=== PATIENT | female | born 1950 | race Caucasian/White ===

== ENCOUNTER 2019-04-02 08:23 | Emergency (ER) | payer OTHER, SELFPAY ==
[2019-04-02 08:24] VITALS: BP 148/80; PULSE 90; RESP 18; TEMP 37; O2SAT 98; BMI 31.9
--- NOTE | 2019-04-02 08:43 | ED.DCSUM_ITS ---
History of Present Illness Chief Complaint: Wound Check Informant: Patient, Family Onset: Weeks Current Severity: Moderate Maximum Severity: Moderate Narrative: She presents for wound check. She suffered lacerations to both lower legs on March 23 after hitting her legs on a Rototiller. There is a 7 cm laceration over the left garay. There is a 4 cm and 7 cm laceration over the right garay. The longer laceration on the right leg has had drainage. Patient was seen at [facility] urgent care. After the initial injury she was treated with Keflex. She returned due to concern of infection. One stitch was removed and the wound was irrigated again. She was placed on amoxicillin and is still on that now. Patient presents for wound check and is concerned the wound was not cleaned properly. She is started to notice some increasing redness on her right garay. She had low-grade fever yesterday at 99 but afebrile today. Overall she feels well. Past Medical History - Allergies and Home Meds Allergies/Adverse Reactions: Allergies No Known Allergies Allergy (Verified 04/02/19 08:26) Primary Care Physician: Mendez Jose DO [Primary Care Provider] - Prior records reviewed: Yes Past Medical History: - - Reviewed Lives: With Family Smoking Status: Never smoker Review of Systems General: Reports: Fever, Subjective. Denies: Chills Eyes: Denies: Visual changes - bilaterally ENT: Denies: Bilateral ear pain Cardiovascular: Denies: Chest pain Respiratory: Denies: Dyspnea, Cough Gastrointestinal: Denies: Abdominal pain, Nausea, Vomiting, Diarrhea Genitourinary: Denies: Dysuria Musculoskeletal: Denies: Extremity Pain Skin: Reports: Wounds Neurological: Denies: Headache, Parasthesia Hematologic: Denies: Easy bruising, Easy bleeding Allergy: Denies: Uticaria Physical Exam Vital Signs/Narrative: Vital Signs Temp Pulse Resp BP Pulse Ox 04/02/19 08:24 98.6 F 90 18 148/80 H 98 Inital Vital Signs reviewed: Yes General: Well nourished, Well developed Head: Normocephalic ENT: Moist mucous membranes Neck: Supple Cardiovascular: Regular rate, Regular rhythm Respiratory: No distress, CTA bilaterally Abdomen: Soft, Nontender Extremities: - - Left garay reveals a 7 cm laceration with stitches intact. No sign of infection. Right garay reveals a 4 cm laceration with sutures intact and no sign of infection. There is a 7 cm laceration with sutures intact. There is mild bloody drainage. There is surrounding cellulitis. Area is minimally tender to palpation. There is no fluctuance. Skin: - - As above Neurological: Alert, Oriented x3 Psychological: Normal affect Diagnostic/Tx/Re-eval Laboratory Results 04/02/19 04/02/19 09:15 09:15 WBC 6.1 RBC 3.94 L Hgb 11.4 L Hct 35.8 L MCV 90.9 MCH 28.9 MCHC 31.8 L RDW Std Deviation 41.2 RDW Coeff of Nicole 12.4 Plt Count 346 MPV 8.3 Immature Gran % (Auto) 1.300 H Neut % (Auto) 65.8 Lymph % (Auto) 23.1 [place] % (Auto) 7.3 Eos % (Auto) 1.5 Baso % (Auto) 1.0 Absolute Neuts (auto) 4.0 Absolute Lymphs (auto) 1.40 Nucleated RBC % 0 Sodium 140 Potassium 4.0 Chloride 107 Carbon Dioxide 31.0 Anion Gap 2 L BUN 22 H Creatinine 0.58 Estim Creat Clear Calc 40.07 Est GFR (MDRD) Af Amer 132 Est GFR (MDRD) Non-Af 109 BUN/Creatinine Ratio 37.9 H Glucose 100 Calcium 9.2 - Medical Decision Making Right leg wound is cleansed. I palpated around the wound and there is no expression of pus or debris. There is no subcu emphysema. Area is minimally tender to palpation. Area of cellulitis is outlined and measures 9 x 15 cm. She received a dose of clindamycin in the emergency room. She will be treated with Bactrim and Keflex in combination to better cover MRSA. If her cellulitis extends or she develops fever she is to return for IV antibiotics. She also had blood cultures obtained. She was advised if these are positive she will be called and asked to come back in for IV medication as well. ED Disposition - Plan for ED Patient: Disposition: Home or Assisted Living Diagnosis: Infected laceration, Cellulitis Instructions: WOUND CHECK, Lac F/U (Infected), Cellulitis Prescriptions: Smz/Tmp Ds [Bactrim Ds] 1 tablet PO BID #20 tablet Cephalexin [Keflex] 500 mg PO Q6 #40 capsule Referrals: Mendez Jose DO [Primary Care Provider] - 1 Week
[2019-04-02] MEDS: 0.9% Normal Saline 1,000 ML 150 ML IV (09:21)
[2019-04-02 09:26] LABS: Basophil# 0.06 X10^3/uL; Eosinophil# 0.09 X10^3/uL; Eosinophils% 1.5 % (0-5); Hematocrit 35.8 % (37-47); Hemoglobin 11.4 g/dL (12.0-15.0); Lymphocyte % 23.1 % (19-41); Mean Corp Hgb Conc 31.8 g/dL (32-36); Mean Corpuscular Hgb 28.9 pg (27.0-32.0); Mean Corpuscular Volume 90.9 fL (81-99); Mean Platelet Vol. 8.3 fl (6.2-12.0); Monocyte# 0.44 X10^3/uL; Monocyte% 7.3 % (0-10); NRBC Flagged by Analyzer 0 % (0-5); Neutrophil # 3.99 X10^3/uL (2.7-7.7); Neutrophil % 65.8 % (47-70); Platelet Count 346 K/mm3 (150-450); RBC Distribution Width CV 12.4 % (11.6-14.6); RBC Distribution Width SD 41.2 fl (35.1-43.9); Red Blood Count 3.94 M/mm3 (4.2-5.4); White Blood Count 6.1 K/mm3 (4.4-11.0)
[2019-04-02 09:35] LABS: Anion Gap 2 (5-15); BUN 22 mg/dL (7-18); BUN/Creat Ratio 37.9 RATIO (10-20); Calcium,Total 9.2 mg/dL (8.5-10.1); Chloride 107 mmol/L (98-107); Creatinine, Serum 0.58 mg/dL (0.55-1.02); EST Glomerular Filtration Rate 109 mL/min (>60); Est Glom Filt Rate - Afr Amer 132 mL/min (>60); Estimated Creatinine Clearance 40.07 ml/min; Glucose 100 mg/dL (74-106); Sodium Level 140 mmol/L (136-145)
[2019-04-02 09:50] VITALS: BP 129/74; PULSE 80; RESP 16; TEMP 36.7; O2SAT 97
[2019-04-02 10:20] VITALS: BP 131/75; PULSE 62; RESP 15; TEMP 36.7; O2SAT 98
== END 2019-04-02 10:23 | disposition home or self-care (01) ==
PROVIDERS: Emergency Provider Emergency Medicine; Family Provider Physician Assistant; PCP Physician Assistant
DX: S81.811D Laceration without foreign body, right lower leg, subsequent encounter (principal); L03.115 Cellulitis of right lower limb; W45.8XXD Other foreign body or object entering through skin, subsequent encounter; Z79.2 Long term (current) use of antibiotics
CPT/HCPCS: 36415; 80048; 85025; 87040; 96365; 99283; J7030; A4216

== ENCOUNTER 2024-04-20 07:58 | Observation (INO) | payer OTHER, SELFPAY ==
[2024-04-20] VITALS (10 sets, daily range): BP systolic 151–202; BP diastolic 83–91; PULSE 60–69; RESP 15–67; TEMP 36.4–36.8; O2SAT 96–99; BMI 28.7; BMI 29.8
--- NOTE | 2024-04-20 08:01 | NURSING ---
NO OLD EKGS
--- NOTE | 2024-04-20 08:02 | NURSING ---
[id number] CALLED STROKE ALERT FROM TRIAGE
--- NOTE | 2024-04-20 08:03 | EKG12_ITS ---
Test Reason : STROKE Blood Pressure : / mmHG Vent. Rate : 064 BPM Atrial Rate : 064 BPM P-R Int : 156 ms QRS Dur : 098 ms QT Int : 450 ms P-R-T Axes : 033 -03 017 degrees QTc Int : 464 ms Sinus rhythm with Premature atrial complexes Otherwise normal ECG Confirmed by David Garza ([id number]), script editor KENRICK GIVENS ([id number]) on 04/21/2024 8:26:33 AM Referred By: Confirmed By:David Garza
--- NOTE | 2024-04-20 08:03 | CT_ITS ---
We are attempting to reach an attending provider to discuss findings. An addendum with communication details will be sent when the communication is complete. INDICATION: Neuro deficit, acute, stroke suspected EXAMINATION: CT BRAIN - CT Head Stroke Protocol W/O Contrast Injection TECHNIQUE: Multiple axial images were obtained of the head without intravenous contrast. The protocol utilizes one or more of the following dose reduction techniques: automated exposure control, adjustment of mA and/or kV according to patient size,and/or use of iterative reconstruction technique. IV Contrast dosage and agent: None. RADIATION DOSAGE (If Supplied By Facility): CTDIvol = ( ) mGy, DLP = ( ) mGycm COMPARISON: FINDINGS: BRAIN PARENCHYMA: No intra- or extra-axial hemorrhage. No evidence of acute infarct. No intracranial mass or mass effect. There is preservation of the berumen/white matter interface. Posterior fossa structures are unremarkable. CSF SPACES: Appropriate for age. No hydrocephalus. Basal cisterns are patent. CALVARIUM, SKULL BASE, PARANASAL SINUSES AND MASTOID AIR CELLS: Clear. No discrete lytic or blastic abnormalities. ORBITS: Both globes, extraocular muscles, optic nerves and retrobulbar fat appear unremarkable. ASPECTS Score for Acute Strokes: 10 CT/STROKE Brain/Head without Cont IMPRESSION: Negative Brain CT without contrast. Electronically Signed: Patrick Kirby MD at 8:23 EDT ,
--- NOTE | 2024-04-20 08:04 | EDS_ITS ---
HPI History of Present Illness Chief Complaint: Stroke Alert [facility] Medical History (Updated 04/03/19 @ 00:01 by Abby Santiago) Diastasis recti Ventral hernia Home Medications ?Medication ?Instructions ?Recorded ?Last Taken ?Type lisinopril 20 mg tablet 20 mg PO DAILY 04/20/24 Unknown History Allergy/AdvReac Type Severity Reaction Status Date / Time No Known Allergies Allergy Verified 04/02/19 08:26 Family History Mother Cancer lymphoma Sister Diabetes Surgical History (Updated 07/15/17 @ 12:56 by Justyna Bob) H/O colonoscopy H/O: hysterectomy H/O exploratory laparotomy H/O: section Social History (Updated 07/17/17 @ 14:[address] Safia Reynolds MD) Smoking Status: Never smoker alcohol intake: never EXAM Physical Exam Const Vital Signs: 04/20/24 08:00 04/20/24 08:03 04/20/24 08:09 Temperature 98.1 F Temperature Source Temporal Pulse Rate 67 67 Respiratory Rate 16 67 H Blood Pressure 202/90 H 179/90 H Blood Pressure Mean 127 119 Pulse Ox 99 99 98 Oxygen Delivery Method Room Air Room Air Room Air MDM MDM MDM Narrative Medical decision making narrative: HISTORY OF PRESENT ILLNESS: 74-year-old female presents concern for dizziness, balance difficulty, numbness. Last known well was 7 PM on 04/19/2024 approximately 13 hours prior to ED arrival. Per triage nurse patient had no facial droop. Noted left leg drift, left arm drift REVIEW OF SYSTEMS: Pertinent positives: Numbness, dizziness, Pertinent negatives: Chest pain, shortness breath, palpitations PHYSICAL EXAM: Nursing triage notes reviewed, Vital signs reviewed Constitutional: please see mdm HENT: MMM Eyes: Pupils equal round and reactive to light, Extraocular muscles intact Neck: No stridor, no JVD, full neck ROM Lungs: Clear to auscultation, No wheezing or rales. No increased work of breathing, no conversational dyspnea, no accessory muscle use, no nasal flaring. No respiratory distress noted Heart: Regular rate and rhythm, No murmurs, No rubs and No gallops, 2+ distal pulses (radial, femoral, posterior tibial) in all extremities Abdomen: Soft, there is no tenderness, rigidity, rebound or guarding, no obvious peritoneal signs, no palpable pulsatile abdominal masses, no auscultated abdominal bruit : No CVAT Extremities: No edema Neuro: Alert, oriented x 3, sensation intact in all 4 extremities, slight drift in left upper extremity with slight pronator drift, no obvious visual field deficits, no obvious nystagmus, no extremity ataxia. Gait initially not assessed secondary to acuity of condition. No obvious dysarthria or aphasia. NIH of 3 per triage notes (left-sided weakness in upper and lower extremity, numbness or slight sensory loss in left upper extremity). On my exam I had an NIH of 1 for left upper extremity drift. Skin: No rash or lesions noted MEDICAL DECISION MAKING: Chief Complaint: dizziness, numbness External records reviewed: Reviewed prior ED notes Factors affecting care: HTN Social determinants of health: [employer] History obtained from others: Consults: Stroke radiology, stroke neurology, internal medicine MDM Narrative: The patient was initially hypertensive with a blood pressure 202/90, otherwise afebrile and nontoxic-appearing. Given patient was noted to have left sided weakness per triage nurse report a stroke team was called in triage. Patient was evaluated immediately by myself. Initial neurologic exam for me was NIH of 1 for slight left upper extremity drift. Stroke protocol orders were placed immediately. I considered the following differential diagnosis: ICH, CVA, posterior circulation CVA, carotid artery dissection, dehydration, electro disturbance, arrhythmia, myocardial ischemia, coagulopathy Given patient's symptoms started within the first 24 hours a code stroke was called. The patient was NOT a candidate for TNK or thrombectomy given she was more than 4 and half hours since last known well and she does not have an NIH stroke scale high enough nor imaging findings (large vessel occlusion on CTA) to qualify for thrombectomy ALL IMAGES (IF OBTAINED) HAVE BEEN PERSONALLY REVIEWED AND INTERPRETED BY MYSELF. CT scan of the brain was negative for bleed or mass CT head and neck shows no evidence of large vessel occlusion EKG with NSR, normal axis, normal intervals, no afib, no STEMI BMP without evidence of significant electrolyte abnormalities (noted hypokalemia), no anion gap, no acute kidney injury. CBC without leukocytosis, severe anemia, no thrombocytopenia. High-sensitivity troponin is negative, no evidence of myocardial ischemia I have personally reviewed the patient's chest x-ray. Chest x-ray is unremarkable for pulmonary edema, pneumothorax, pneumonia or focal cardiopulmonary abnormality. On reevaluation the patient's blood pressure improved 182 /88. Given concern for acute CVA will admit for confirmatory MRI. Discussed with hospitalist, stroke radiologist and stroke neurologist. Who are all in agreement. The patient and/or family, caregivers express understanding. The patient and/or family, caregivers agrees with the plan. Shared decision making: I will have a discussion with the patient and or visitors regarding risk/benefits of further testing or admission. They will be made aware of of the risk/benefits inherent in this decision they will be given the opportunity to voice understanding. Total critical care time today provided was at least 0 minutes. This excludes separately billable procedures. Critical care time (if documented) is secondary to the patient having high probability of clinically significant/life threatening deterioration in the patient's condition which required my urgent intervention. Impression: 1. Left-sided weakness 2. History of hypertension 3. Acute CVA Dispo: Admit This note was generated with [email or web address] dictation software. It may contain incorrect words, spelling, and punctuation that were not noted in review of the chart prior to signing. Lab Data Labs: Laboratory Results - last 24 hr 04/20/24 08:10 WBC 6.7 RBC 4.31 Hgb 12.5 Hct 38.8 MCV 90.0 MCH 29.0 MCHC 32.2 RDW Std Deviation 43.2 RDW Coeff of Nicole 13.1 Plt Count 233 MPV 8.9 Immature Gran % (Auto) 0.400 Neut % (Auto) 65.5 Lymph % (Auto) 24.2 [place] % (Auto) 8.0 Eos % (Auto) 1.3 Baso % (Auto) 0.6 Absolute Neuts (auto) 4.4 Absolute Lymphs (auto) 1.63 Nucleated RBC % 0 Radiography Diagnostic Testing: Clinical Impression(s) from Imaging Studies Brain CT 04/20/24 08:03 IMPRESSION: Negative Brain CT without contrast. Electronically Signed: Patrick Kirby MD at 8:23 EDT , Discharge Plan Triage Chief Complaint: Stroke Alert ED Provider: Cali,Manolo Dx/Rx/DC Orders Prescriptions: No Action lisinopril 20 mg tablet 20 mg PO DAILY Primary Care Provider: Mendez Jose Referrals: Mendez Jose, PARaúlC [Primary Care Provider] - Print Language: Tamazight
--- NOTE | 2024-04-20 08:04 | CT_ITS ---
We are attempting to reach an attending provider to discuss findings. An addendum with communication details will be sent when the communication is complete. STUDY: CTA HEAD AND NECK WITH CONTRAST REASON FOR EXAM: Female, 74 years old. Neuro deficit, acute, stroke suspected RADIATION DOSAGE (If Supplied By Facility): CTDIvol = ( 20.01 ) mGy, DLP = ( 699.43 ) mGycm TECHNIQUE: CT angiography was performed with a multi-detector CT scanner. Data acquisition was obtained from the skull base through the vertex following intravenous administration of IV 100mL [id number]-370. MIP images were reconstructed from the axial data set. Post-processing of the angiographic images was performed, with multiplanar reformation and 3D reconstruction. Individualized dose optimization techniques were used for this CT. COMPARISON: No relevant priors. FINDINGS: Normal bilateral petrous carotid arteries. Normal right cavernous carotid artery with a normal supraclinoid bifurcation. Normal left cavernous carotid artery with a normal supraclinoid bifurcation. Normal right A1 segments of the anterior cerebral artery. Normal left A1 segments of the anterior cerebral artery. Normal intact anterior communicating artery (ACOM). Normal bilateral A2 segments of the anterior cerebral arteries. Normal right M1 and M2 segments of the middle cerebral arteries, with a normal M1 bifurcation. Normal left M1 and M2 segments of the middle cerebral arteries, with a normal M1 bifurcation. Normal right posterior communicating artery (PCOM). Normal left posterior communicating artery (PCOM). Normal bilateral vertebral arteries. Normal basilar artery with a normal basilar bifurcation. The visualized bilateral superior cerebellar (SCA) arteries are normal. Normal bilateral P1, P2 and visualized P3 segments of the posterior cerebral arteries. There is no demonstrated aneurysm of the solomon of [place]. There is no demonstrated abnormality of the visualized brain. AORTIC ARCH: Normal visualized aortic arch. Normal origins of the brachiocephalic, left common carotid, and left subclavian arteries. RIGHT CAROTID ARTERIES: Normal right common carotid artery (CCA). Normal right common carotid bulb. Normal origin of the right internal carotid (ICA) artery without a hemodynamically significant stenosis. Normal visualized cervical portion of the right internal carotid artery. Normal origin of the right external carotid artery (ECA). LEFT CAROTID ARTERIES: Normal left common carotid artery (CCA). Normal left common carotid bulb. Normal origin of the left internal carotid (ICA) artery without a hemodynamically significant stenosis. Normal visualized cervical portion of the left internal carotid artery. Normal origin of the left external carotid artery (ECA). VERTEBRAL ARTERIES: Normal bilateral vertebral arteries. CT/STROKE CTA Head AND Neck W/Con IMPRESSION: Normal CTA Head and neck with contrast. Electronically Signed: Patrick Kirby MD at 8:45 EDT ,
[2024-04-20 08:21] LABS: Absolute Lymphocyte Count 1.63 X10^3/uL (0.83-4.51); Absolute Neutrophil Count 4.4 X10^3/uL (2.0-7.7); Basophil# 0.04 X10^3/uL; Basophil% 0.6 % (0-1); Eosinophil# 0.09 X10^3/uL; Eosinophils% 1.3 % (0-5); Hematocrit 38.8 % (37-47); Hemoglobin 12.5 g/dL (12.0-15.0); Lymphocyte # 1.63 X10^3/ul (0.83-4.51); Lymphocyte % 24.2 % (19-41); Mean Corp Hgb Conc 32.2 g/dL (32-36); Mean Platelet Vol. 8.9 fl (6.2-12.0); Monocyte# 0.54 X10^3/uL; NRBC Flagged by Analyzer 0 % (0-5); Neutrophil # 4.41 X10^3/uL (2.7-7.7); Neutrophil % 65.5 % (47-70); Platelet Count 233 K/mm3 (150-450); RBC Distribution Width CV 13.1 % (11.6-14.6); RBC Distribution Width SD 43.2 fl (35.1-43.9); Red Blood Count 4.31 M/mm3 (4.2-5.4); White Blood Count 6.7 K/mm3 (4.4-11.0)
[2024-04-20 08:39] LABS: Anion Gap 8 (5-15); BUN 12 mg/dL (7-18); BUN/Creat Ratio 21.3 RATIO (10-20); Calcium,Total 9.6 mg/dL (8.5-10.1); Chloride 107 mmol/L (98-107); Creatinine, Serum 0.56 mg/dL (0.55-1.02); EST Glomerular Filtration Rate 112 mL/min (>60); Est Glom Filt Rate - Afr Amer 135 mL/min (>60); Estimated Creatinine Clearance 54.81 ml/min; Glucose 104 mg/dL (74-106); Potassium 3.3 mmol/L (3.5-5.1); Sodium Level 141 mmol/L (136-145); Troponin-I HS 12 pg/mL (3.0-54.0)
[2024-04-20 08:45] LABS: Bedside Glucose 91 mg/dL (74-106)
[2024-04-20 09:12] LABS: International Normalized Ratio 1.1; Prothrombin Time (Protime)PT. 13.9 SECONDS (11.7-14.9)
[2024-04-20 09:14] LABS: Partial Thromboplast Time 32.6 Seconds (24.1-36.2)
--- NOTE | 2024-04-20 09:15 | RAD_ITS ---
STUDY: X-RAY CHEST REASON FOR EXAM: Female, 74 years old. Neuro deficit, acute, stroke suspected TECHNIQUE: Single AP portable view of the chest. COMPARISON: None. FINDINGS: The lungs are clear and expanded. There is no demonstrated pleural abnormality. Normal size heart. Normal mediastinum and salazar. Normal visualized pulmonary arteries. Normal visualized aortic arch and descending thoracic aorta. Normal visualized thoracic spine. Normal visualized ribs, clavicles, and shoulders. There is no demonstrated abnormality of the visualized soft tissue structures of the upper abdomen. RAD/Chest 1 View IMPRESSION: Normal x-ray examination of the chest. Electronically Signed: Patrick Kirby MD at 10:09 EDT ,
--- NOTE | 2024-04-20 09:43 | MRI_ITS ---
EXAM: MR HEAD WITHOUT INTRAVENOUS CONTRAST CLINICAL INDICATION: CVA TECHNIQUE: Multiplanar and multisequence MR images of the brain were obtained without intravenous contrast. COMPARISON: CT head without contrast and CTA head and neck with contrast 04/20/2024. FINDINGS: BRAIN AND EXTRA-AXIAL SPACES: No diffusion restriction to suspect acute or subacute ischemic infarct. Multiple T2 FLAIR hyperintensity foci in the white matter of both cerebral hemispheres are chronic white matter ischemic changes. No remote cortical-based ischemic infarct. No midline shift and no mass effects. Normal ventricles and cisterns. No communicating or noncommunicating hydrocephalus. No intra- or extra-axial hemorrhage. Posterior fossa structures are unremarkable. SELLA: Unremarkable. Normal sella turcica, pituitary gland, infundibular stalk, optic chiasm and hypothalamus. AUDITORY SYSTEM: Unremarkable. The internal auditory canals are patent. BONES/JOINTS: Unremarkable. No discrete lytic or blastic abnormalities. SINUSES: Unremarkable as visualized. Clear. MASTOID AIR CELLS: Unremarkable as visualized. Clear. ORBITS: Unremarkable as visualized. Both globes, extraocular muscles, optic nerves and retrobulbar fat appear unremarkable. VASCULATURE: Unremarkable as visualized. Normal flow voids in the major intracranial circulation. MRI/Brain without Contrast IMPRESSION: 1. No MRI evidence of acute or subacute ischemic infarct or acute intracranial abnormality. 2. Chronic white matter ischemic changes in both cerebral hemispheres. Electronically Signed: Clovis Thomas MD at 8:26 EDT ,
--- NOTE | 2024-04-20 09:43 | ECHOD_ITS ---
Reason For Study: TIA/STROKE Procedure This was a 2D Doppler, Color Flow transthoracic echocardiogram. Exam performed portable in patient room. Left Ventricle Normal LV size. Sigmoid septum. Left ventricular systolic function is normal. The left ventricular ejection fraction is 65 %. Stage 1 diastolic dysfunction. No regional wall motion abnormalities noted. Right Ventricle Normal RV size. Normal systolic function. Atria Normal left atrium. Normal right atrium. Cannot rule out tiny PFO. Mitral Valve Normal mitral valve. Tricuspid Valve Normal tricuspid valve. Mild (1+) tricuspid valve insufficiency. Pulmonary artery systolic pressure is 24 mmHg. Aortic Valve Trisinus/trileaflet aortic valve. Mild focal aortic valve calcification. Pulmonic Valve Normal pulmonic valve. Great Vessels Normal aortic root. The pulmonary artery is normal size. Inferior vena cava collapse with respiration. Pericardium/Pleural No pericardial effusion. Medication Performed a rapid injection of agitated mix of 9 cc saline and 1cc air to assess for atrial septal defect. MMode/2D Measurements & Calculations LVIDd: 3.9 cm IVSd: 1.5 cm LVOT diam: 2.1 cm LVIDs: 2.6 cm LVPWd: 1.1 cm RVDd: 4.0 cm FS: 33.7 % LVOT area: 3.5 cm2 asc Aorta Diam: 3.5 cm LAV(MOD-bp): 52.2 ml LVAd ap4: 27.5 cm2 LAV(MOD-bp) Indexed: 30.5 ml/m2 LVLd ap4: 8.4 cm LAV(MOD-sp2): 59.4 ml EDV(MOD-sp4): 73.0 ml LAV(MOD-sp4): 36.3 ml EDV(sp4-el): 76.9 ml LVAs ap4: 14.0 cm2 LVLs ap4: 6.9 cm ESV(MOD-sp4): 24.6 ml ESV(sp4-el): 24.0 ml EF(MOD-sp4): 66.3 % EF(sp4-el): 68.7 % LVAd ap2: 24.4 cm2 SV(MOD-sp4): 48.3 ml SV(MOD-sp2): 37.8 ml LVLd ap2: 8.4 cm EDV(MOD-sp2): 58.0 ml EDV(sp2-el): 60.2 ml LVAs ap2: 12.6 cm2 LVLs ap2: 7.1 cm ESV(MOD-sp2): 20.2 ml ESV(sp2-el): 18.8 ml EF(MOD-sp2): 65.2 % SV(sp4-el): 52.8 ml Ao sinus diam: 3.[address] Junction: 2.7 cm LA dimension(2D): 4.1 cm LA A4 area: 14.8 cm2 RA A4 area: 12.2 cm2 TAPSE: 1.8 cm Time Measurements MV dec time: 0.25 sec Doppler Measurements & Calculations MV E max jeronimo: 76.5 cm/sec Lat Peak E' Jeronimo: 8.5 cm/sec Med Peak E' Jeronimo: 6.7 cm/sec MV A max jeronimo: 88.0 cm/sec E/E' lat: 9.0 E/E' med: 11.5 MV E/A: 0.87 MV dec slope: 300.3 cm/sec2 Ao V2 max: 178.9 cm/sec LV V1 max: 97.3 cm/sec Ao max P.8 mmHg LV V1 max P.8 mmHg Ao V2 mean: 120.6 cm/sec LV V1 mean P.3 mmHg Ao mean P.5 mmHg LV V1 mean: 73.3 cm/sec Ao V2 VTI: 34.8 cm LV V1 VTI: 22.2 cm AV (velocity ratio): 0.64 ANDREI(I,D): 2.2 cm2 ANDREI(V,D): 1.9 cm2 SV(LVOT): 77.1 ml PA V2 max: 80.8 cm/sec TR max jeronimo: 228.1 cm/sec PA max PG (full): 1.5 mmHg TR max P.8 mmHg ECHO/Echo Complete Interpretation Summary Normal LV size. Left ventricular systolic function is normal. The left ventricular ejection fraction is 65 %. Stage 1 diastolic dysfunction. Pulmonary artery systolic pressure is 24 mmHg. Cannot rule out tiny PFO. Ordering Physician: Misael Alcazar Performed By: Erna Díaz RDCS
[2024-04-20] MEDS: Heparin Injection (Vial) 5,000 UNIT/ML VIAL 5000 UNIT SC ×2 (11:20→21:23)
--- NOTE | 2024-04-20 16:29 | HP.PCM.HOS_ITS ---
HPI - General General Date of Admission: 04/20/24 Date of Service: 04/20/24 Chief Complaint: Left-sided weakness, left hand numbness HPI Narrative FLYNN YAN, is a 74 F who presents to the emergency room at [facility] with complaints of left-sided weakness since around 7:00 last night, patient also complains of a numbness over her left hand. Patient denies any speech or visual impairment. Stroke team was called on her admission to the emergency room today, she underwent a CT of her head which did not show an acute process, she also had a CTA of her head and neck which showed no evidence of large vessel occlusion. Patient takes only lisinopril at home, she does not take an 81 mg aspirin per day. Patient's NIH stroke score according to the emergency room physician was 1. Patient's blood pressure was elevated on admission at 202/90. Patient's CHEM profile was remarkable for potassium 3.3, CBC was unremarkable. Patient will be placed in observation status on PCU, and MRI of the brain without contrast will be obtained and an echocardiogram will be obtained. Patient will have a lipid profile drawn and be placed on a statin and an 81 mg aspirin daily. She will be seen in consultation by teleneurology. [facility] Medical History (Updated 04/20/24 @ 17:[address] Misael Alcazar DO) Diastasis recti Ventral hernia Home Medications ?Medication ?Instructions ?Recorded ?Last Taken ?Type lisinopril 20 mg tablet 20 mg PO DAILY 04/20/24 04/19/24 History Allergy/AdvReac Type Severity Reaction Status Date / Time No Known Allergies Allergy Verified 04/02/19 08:26 Family History Mother Cancer lymphoma Sister Diabetes Surgical History H/O colonoscopy H/O: hysterectomy H/O exploratory laparotomy H/O: section Social History (Updated 07/17/17 @ 14:[address] Safia Reynolds MD) Smoking Status: Never smoker alcohol intake: never ROS Constitutional Constitutional: Reports weakness; Denies anorexia, change in weight, chills, fatigue, fever(s) or night sweats Eyes Eyes: Denies blurry vision, change in vision, discharge from eye(s) or eye pain Cardiovascular Cardiovascular: Denies chest pain, claudication, dyspnea on exertion, edema, lightheadedness or palpitations Respiratory/Chest Respiratory/Chest: Denies cough, hemoptysis, shortness of breath at rest or shortness of breath with exertion Gastrointestinal Gastrointestinal: Denies abdominal pain, constipation, diarrhea, hematemesis, hematochezia, melena, nausea or vomiting Genitourinary Genitourinary: Denies dysuria, hematuria, urinary frequency, urinary hesitancy, urinary incontinence or urinary urgency Musculoskeletal Musculoskeletal: Denies back pain, joint pain, joint stiffness, joint swelling, myalgias or neck pain Neurologic Neurologic: Reports focal weakness and numbness; Denies abnormal gait, abnormal speech, dizziness, headache(s), loss of vision, other visual disturbances, paresthesias, syncope or tingling Psychiatric Psychiatric: Denies anxiety, cognitive impairment, depression, irritability, mood swings or suicidal ideation Endocrine Endocrinology: Denies change in body appearance, cold intolerance, excessive sweating, heat intolerance, polydipsia or polyuria Hematologic/Lymphatic Hematologic/Lymphatic: Denies none, anemia, easy bleeding, easy bruising or lymphadenopathy Allergic/Immunologic Allergic/Immunologic: Denies rhinitis, urticaria, eczemia or asthma Vital Signs Vital Signs Vital Signs: 04/20/24 08:00 04/20/24 08:03 04/20/24 08:09 Temperature 98.1 F Temperature Source Temporal Pulse Rate 67 67 Respiratory Rate 16 67 H Blood Pressure 202/90 H 179/90 H Blood Pressure Mean 127 119 Blood Pressure Source Blood Pressure Position Blood Pressure Location Pulse Ox 99 99 98 Oxygen Delivery Method Room Air Room Air Room Air 04/20/24 08:33 04/20/24 09:44 04/20/24 10:35 Temperature 98.2 F 97.6 F L Temperature Source Temporal Pulse Rate 62 63 60 Respiratory Rate 18 15 16 Blood Pressure 182/88 H 176/86 H 165/91 H Blood Pressure Mean 119 116 115 Blood Pressure Source Monitor Blood Pressure Position Semi-Fowlers Blood Pressure Location Right Arm Pulse Ox 98 98 98 Oxygen Delivery Method Room Air Room Air 04/20/24 10:35 04/20/24 14:09 04/20/24 15:24 Temperature 97.5 F L Temperature Source Oral Pulse Rate 64 Respiratory Rate 18 Blood Pressure 151/83 H Blood Pressure Mean 105 Blood Pressure Source Monitor Blood Pressure Position Semi-Fowlers Blood Pressure Location Right Arm Pulse Ox 98 96 Oxygen Delivery Method Room Air Room Air Room Air Weight Weight: 71.7 kg Body Mass Index (BMI) 29.8 Physical Exam Const alert, oriented x3, no apparent distress and healthy appearing General Appearance: cooperative, well kempt and well developed Orientation / Consciousness: awake, oriented to person, oriented to place and oriented to time HEENT normocephalic, head/scalp atraumatic, hearing grossly normal bilaterally and moist oral mucous membranes Eyes PERRL, EOMs intact bilaterally and conjunctivae normal Neck supple, no JVD, thyroid normal and no carotid bruits General: trachea midline Resp normal respiratory effort, no retractions, no use of accessory muscles and clear to auscultation bilaterally Auscultation: Negative for rales, rhonchi or wheezes Cardio regular rate, regular rhythm, S1 normal heart sound, S2 normal heart sound, no murmurs, no rub and no gallops GI normal to inspection, nondistended, normoactive bowel sounds, soft to palpation, non-tender and non-distended Extremity no clubbing, cyanosis or edema Skin no rashes or lesions noted General Skin Exam: no breakdown Neuro oriented x3, CN's II-XII intact bilaterally, moves all extremities, no focal motor deficits and no sensory deficits noted Sensorium / Orientation: awake and alert Speech: speech normal Psych affect normal Results Lab / Micro Data 04/20/24 08:10 04/20/24 08:10 Labs: Laboratory Results - last 24 hr 04/20/24 07:58: POC Glucose 91 04/20/24 08:10: WBC 6.7, RBC 4.31, Hgb 12.5, Hct 38.8, MCV 90.0, MCH 29.0, MCHC 32.2, RDW Std Deviation 43.2, RDW Coeff of Nicole 13.1, Plt Count 233, MPV 8.9, Immature Gran % (Auto) 0.400, Neut % (Auto) 65.5, Lymph % (Auto) 24.2, [place] % (Auto) 8.0, Eos % (Auto) 1.3, Baso % (Auto) 0.6, Absolute Neuts (auto) 4.4, Absolute Lymphs (auto) 1.63, Nucleated RBC % 0, PT 13.9, INR 1.1, APTT 32.6, Sodium 141, Potassium 3.3 L, Chloride 107, Carbon Dioxide 27.0, Anion Gap 8, BUN 12, Creatinine 0.56, Estim Creat Clear Calc 54.81, Est GFR (MDRD) Af Amer 135, Est GFR (MDRD) Non-Af 112, BUN/Creatinine Ratio 21.3 H, Glucose 104, Calcium 9.6, Troponin I High Sens 12 Imaging Radiology Impression Brain CT 04/20/24 08:03 IMPRESSION: Negative Brain CT without contrast. Electronically Signed: Patrick Kirby MD at 8:23 EDT Reading Location ID and State: [id number] / [employer] Tel , Service support , ADDENDUM: 04/20/24 0839 IMPRESSION: Negative Brain CT without contrast. N.B. : The above Results were Read Back by Patrick Kirby MD to Manolo Leiva DO, and understanding confirmed on 04/20/2024 08:32:54 (ET). Electronically Signed: Patrick Kirby MD at 8:23 EDT Reading Location ID and State: [id number] / [employer] Tel , Service support , Head/Neck CTA 04/20/24 08:04 IMPRESSION: Normal CTA Head and neck with contrast. Electronically Signed: Patrick Kirby MD at 8:45 EDT Reading Location ID and State: [id number] / [employer] Tel , Service support , ADDENDUM: 04/20/24 1004 IMPRESSION: Normal CTA Head and neck with contrast. N.B. : The above Results were Read Back by Patrick Kirby MD to Manolo Leiva DO, and understanding confirmed on 04/20/2024 09:57:10 (ET). Electronically Signed: Patrick Kirby MD at 8:45 EDT Reading Location ID and State: [id number] / [employer] Tel , Service support , Chest X-Ray 04/20/24 09:15 IMPRESSION: Normal x-ray examination of the chest. Electronically Signed: Patrick Kirby MD at 10:09 EDT , Assessment & Plan Assessment/Plan (1) Left-sided weakness: PLAN: Plan 1. Left-sided weakness-etiology unclear, again patient will be placed in observation status on PCU, MRI of the brain will be obtained and an echocardiogram of the heart will be obtained, patient will be placed on a statin and 81 mg aspirin daily, a lipid profile will be obtained, she will be seen in consultation by teleneurology, she will be seen by PT and OT. #2 essential hypertension-patient will remain on lisinopril at this time #3 hypokalemia-patient will be given potassium supplementation, BMP will be repeated tomorrow Total clinical time spent by myself addressing the patient's medical issues, reviewing all of her data, and collaborating with patient's care team: 55 minutes Charges/Coding Visit Charges Inpatient E&M: 46897 Init Hosp L2
[2024-04-20] MEDS: Potassium Chloride Oral Tablet 20 MEQ 40 MEQ PO (17:45)
[2024-04-21 01:45] VITALS: BP 169/107; PULSE 86; RESP 17; TEMP 37; O2SAT 95
[2024-04-21 05:45] VITALS: BP 172/95; PULSE 65; RESP 17; TEMP 36.7; O2SAT 94
[2024-04-21 06:56] LABS: Anion Gap 3 (5-15); BUN 13 mg/dL (7-18); BUN/Creat Ratio 20.5 RATIO (10-20); Calcium,Total 9.4 mg/dL (8.5-10.1); Chloride 110 mmol/L (98-107); Cholesterol 271 mg/dL (200); Creatinine, Serum 0.64 mg/dL (0.55-1.02); EST Glomerular Filtration Rate 97 mL/min (>60); Est Glom Filt Rate - Afr Amer 118 mL/min (>60); Estimated Creatinine Clearance 55.87 ml/min; Glucose 99 mg/dL (74-106); High Density Lipoprotein 70 mg/dL; Potassium 4.4 mmol/L (3.5-5.1); Sodium Level 140 mmol/L (136-145); Triglycerides 82 mg/dL; Very Low Density Lipoprotein 16 mg/dL (5-40)
[2024-04-21 08:03] VITALS: BMI 29.8
[2024-04-21 08:11] VITALS: O2SAT 94
[2024-04-21 09:20] VITALS: BP 160/97; PULSE 73; RESP 16; TEMP 36.3; O2SAT 97
--- NOTE | 2024-04-21 09:51 | NURSING ---
Spoke at length about CVA/TIA, risk factors, and lifestyle/diet/medication modifications and regimen for prevention. The pt and her are Johny and more inclined to pursue holistic measures to aide in stroke prevention. Pt and made aware of lipid panel results and encouraged a statin and diet modifications, to which they seem interested in learning more about diet strategies, but are not agreeable to take any medications at this time as prescribed. This RN informed pt that american history professor would see her while she is here in the hospital. I encouraged them to take prescribed medications as they are the standard of care for stroke prevention but ultimately the decision is theirs and I can just offer the facts to make an informed decision. They were thankful for explanations at this time.
--- NOTE | 2024-04-21 10:37 | DCINST_ITS ---
Discharge Instructions Diet Discharge Diet: No restrictions Activity Discharge Activity: Return to Normal Activity Weight Bearing Status: Full weight bearing Follow Up Care Test Results: Test results from this visit will be discussed in further detail at your follow- up appointment, if applicable. Discharge Plan Admission Admit Date/Time: 04/20/24 09:17 Primary Reason for Your Visit: left sided weakness Attending Provider: Misael Alcazar Primary Care Provider: Mendez Jose Consulting Providers: Devonte Urrutia; Debbie Cardona; Daphne Carreno; Jeannie Balderas; Caitlyn Haley; Chidi Lau; Sydney De La Cruz; Watson Lynch; Dominic Roberto; Constantin Garcia; Taryn Mahajan; Jozef Hawthorne; Milagros Short; Maylin Cuellar; Sharona Morgan; Stalin Gao; Darrick Hodges; Nii De Guzman; Cheryl Jauregui; Saeid Park Discharge Orders/Prescriptions Prescriptions: Continued lisinopril 20 mg tablet 20 mg PO DAILY Referrals / Follow Up: Mendez Jose PA-C [Primary Care Provider] - Within 2 Weeks Disposition Disposition (needs filled in before D/C Order can be placed): Home, Self Care
--- NOTE | 2024-04-21 10:48 | CASEMGMT ---
Social Work PHQ-9 completed, pt scored a 1 for changes in appetite. Otherwise, no indication of depression showing in PHQ-9. No further social service needs anticipated at this time. [facility]anda
--- NOTE | 2024-04-21 10:50 | DS.PCM_ITS ---
Providers Date of Admission: 04/20/24 Date of Discharge: 04/21/24 Primary Care Physician: Mendez Jose PA-C Consultations 04/20/24 10:19 Consult: Tele-Neurology Routine Consulting Provider: [facility] Reason for Consult: Acute Ischemic Stroke/TIA EMERGENT Consult: No MD Notified: Yes Date Notified: 04/20/24 Time Notified: 11:06 Method of Notification: Answering Service Nursing Unit Staff Notify [facility] of Tele-Neurology Consult: Yes Reason For Visit: LEFT SIDED WEAKNESS Diagnosis Discharge Diagnosis (1) Left-sided weakness: Status: Acute Code(s): R53.1 - Weakness Plan 1. Left-sided weakness-etiology unclear, #2 essential hypertension-patient will remain on lisinopril at this time #3 hypokalemia-patient will be given potassium supplementation, BMP will be repeated tomorrow Total clinical time spent by myself addressing the patient's medical issues, reviewing all of her data, and collaborating with patient's care team: 55 minutes Medications at Discharge Home Medications lisinopril 20 mg tablet 20 mg PO DAILY blood pressure 04/20/24 Hospital Course Operations None Procedures 2-D Echocardiogram Summary of Care Provided Minutes Spent on Discharge: 32 Hospital Course: This 74-year-old white female was seen in the emergency room at [facility] with complaints of left-sided weakness that started the evening before she was seen in the emergency room. A stroke team was called, workup included a CTA of the head and neck and a CT of the brain, there was no acute process noted but the patient was not deemed to be a candidate for tenecteplase due to her timeframe of her symptoms and NIH score of 1. Patient's potassium was slightly low and she was given potassium supplementation. Patient was placed in observation status on PCU, NIH scores were monitored, patient had an echocardiogram which was unremarkable, and the patient was placed on aspirin and a statin which she refused to take during her hospitalization. Patient's MRI of the brain showed no evidence of stroke, this examiner did not feel her symptoms indicated a TIA but I recommended the patient take a baby aspirin daily which she refused to take as an outpatient. Instead the patient wanted to take an [id number] medication called nattokinase, she also refused to take a statin as an outpatient. In addition, patient refused her blood pressure medication while hospitalized-patient told me she did not know it was her blood pressure medication and therefore refused it. On 04/21/2024, patient was seen and examined: On examination she appeared in good health and spirits, she does not appear to be in any distress. Vital signs as documented. Skin warm and dry and without overt rashes. Neck without JVD, thyroid appears normal, trachea is midline, neck is supple. Lungs clear, normal air movement was noted. Heart exam notable for regular rhythm, normal sounds and absence of murmurs, rubs or gallops. Abdomen unremarkable and without evidence of organomegaly, masses, or abdominal aortic enlargement, bowel sounds are present in all 4 quadrants, no abdominal tenderness was noted. Extremities nonedematous, no cyanosis was noted, no clubbing was noted. Neuro: Cranial nerves II through XII are grossly intact, no focal motor deficits were noted, sensation to light touch and pinprick is intact, motor exam 5/5 throughout. Psych: Patient is alert and oriented x3, she does not appear anxious or depressed, she does not appear agitated. On 04/21/2024, patient was felt to be stable for discharge home Weight / BMI Weight Weight: 71.7 kg Body Mass Index (BMI) 29.8 ABG / Lab / Microbiology Data 04/20/24 08:10 04/21/24 05:23 Laboratory: Laboratory Results - last 24 hr 04/21/24 05:23: Sodium 140, Potassium 4.4, Chloride 110 H, Carbon Dioxide 26.0, Anion Gap 3 L, BUN 13, Creatinine 0.64, Estim Creat Clear Calc 55.87, Est GFR (MDRD) Af Amer 118, Est GFR (MDRD) Non-Af 97, BUN/Creatinine Ratio 20.5 H, Glucose 99, Calcium 9.4, Triglycerides 82, Cholesterol 271 H, LDL Cholesterol 185 H, VLDL Cholesterol 16, HDL Cholesterol 70 Radiography Diagnostic Testing: Radiology Impression Brain MRI 04/20/24 09:43 IMPRESSION: 1. No MRI evidence of acute or subacute ischemic infarct or acute intracranial abnormality. 2. Chronic white matter ischemic changes in both cerebral hemispheres. Electronically Signed: Clovis Thomas MD at 8:26 EDT , Echocardiogram 04/20/24 09:43 Interpretation Summary Normal LV size. Left ventricular systolic function is normal. The left ventricular ejection fraction is 65 %. Stage 1 diastolic dysfunction. Pulmonary artery systolic pressure is 24 mmHg. Cannot rule out tiny PFO. Ordering Physician: Misael Alcazar Performed By: Erna Díaz RDCS D/C Instructions Discharge Diet: No restrictions Weight Bearing Status: Full weight bearing Meaningful Use Info Meaningful Use Meaningful Use Diagnoses (Choose all that apply): None applicable Ischemic Stroke Statin Dosing Therapy Reference: STATIN DOSE THERAPY REFERENCE: * Patients > 75 years receive moderate or high dose statin therapy. * Patients 75 years or YOUNGER should receive HIGH intensity statin dose unless contraindicated. You will be required to document reason for non-treatment if statin daily dose does not meet guidelines. HIGH DOSE STATIN THERAPY DAILY Atorvastatin > than or = to 40 mg Rosuvastatin > than or = to 20 mg Amlodipine + Atorvastatin > than or = to 2.5/40 mg Ezetimibe + Simvastatin 10/80 mg Simvastatin 80mg Discharge Plan Admission Admit Date/Time: 04/20/24 09:17 Primary Reason for Your Visit: left sided weakness Attending Provider: Misael Alcazar Primary Care Provider: Mendez Jose Consulting Providers: Devonte Urrutia; Debbie Cardona; Daphne Carreno; Jeannie Balderas; Caitlyn Haley; Chidi Lau; Sydney De La Cruz; Watson Lynch; Dominic Roberto; Constantin Garcia; Taryn Mahajan; Jozef Hawthorne; Milagros Short; Maylin Cuellar; Sharona Morgan; Stalin Gao; Darrick Hodges; Nii De Guzman; Cheryl Jauregui; Saeid Park Discharge Orders/Prescriptions Prescriptions: Continued lisinopril 20 mg tablet 20 mg PO DAILY Referrals / Follow Up: Mendez Jose PA-C [Primary Care Provider] - Within 2 Weeks Disposition Disposition (needs filled in before D/C Order can be placed): Home, Self Care Charges/Coding Visit Charges Inpatient E&M: 08517 Disch Hosp >30min
[2024-04-21] MEDS: Lisinopril 20 MG Tablet PO (11:05)
--- NOTE | 2024-04-21 11:10 | PHA.DC.MR.R ---
Pharmacy [place] Med Reconciliation Pharmacy Service has performed discharge medication reconciliation for this patient. The patient's discharge medication list was reviewed for discrepancies and discrepancies were resolved. Medications at Discharge Home Medications lisinopril 20 mg tablet 20 mg PO DAILY blood pressure 04/20/24
--- NOTE | 2024-04-21 11:32 | CASEMGMT ---
Patient has order for discharge. RN CM in to discuss needs at discharge, at bedside. Patient denies needs or help at discharge. Patient had no further questions or concerns.
== END 2024-04-21 11:58 | disposition home or self-care (01) ==
LOC: ED 08:50 → PCU 09:47
PROVIDERS: Admitting Provider Internal Medicine; Emergency Provider Emergency Medicine; PCP Physician Assistant; Visit Provider Internal Medicine
DX: R53.1 Weakness (principal); I10 Essential (primary) hypertension; R42 Dizziness and giddiness; R20.0 Anesthesia of skin; Z79.899 Other long term (current) drug therapy; E87.6 Hypokalemia
CPT/HCPCS: 36415; 70450; 70496; 70498; 70551; 71045; 80048; 80061; 82962; 84484; 85025; 85610; 85730; 93005; 93306; 96372; 99221; 99285; Q9967; A4216; G0378